=== PATIENT | male | born 1995 | race Two or more races ===

== ENCOUNTER 2018-11-25 00:55 | Emergency (ER) | payer MEDICAID ==
[~2018-11-25] VITALS: Ht 165.1 cm; Wt 93.0 kg
[2018-11-25] MEDS ORDERED: HYDROCODONE/ACETAMINOPHEN 5/325MG TABLET PO ONE (02:00)
[2018-11-25] MEDS ORDERED: LEVETIRACETAM 500MG PREMIX 100 ML IV ONE (03:45)
[2018-11-25 03:50] LABS: CHLORIDE 109 mEq/L (98-107)
[2018-11-25 03:52] LABS: BASOPHILS % 0.5 % (0.0-2.0); EOSINOPHILS % 0.4 % (0.0-5.0); HEMATOCRIT. 47.8 % (42.0-52.0); HEMOGLOBIN. 16.2 g/dL (14.0-18.0); INR 0.9; LYMPHOCYTES % 7.5 % (20.0-50.0); MEAN CORPUSCULAR HEMOGLOBIN 29.5 pg (28.0-32.0); MEAN PLATELET VOLUME 9.4 fl (7.4-10.4); MONOCYTES % 4.9 % (2.0-8.0); NEUTROPHILS % 86.7 % (40.0-76.0); PLATELET 225 x1000/uL (130-400); PROTHROMBIN TIME 9.4 sec (9.6-11.0); RED BLOOD CELL COUNT 5.49 mill/uL (4.7-6.1); RED CELL DISTRIBUTION WIDTH 12.9 % (11.6-14.6)
[2018-11-25 11:15] VITALS: BP 134/95
== END 2018-11-25 11:30 | disposition short-term general hospital (02) ==
LOC: ER 00:55 → EDBEDREQ 04:19 → EDBEDREQTM 04:19 → EDBEDREQSVC 04:21 → ENRESERV 04:55 → CANRESERV 04:55 → CANBEDREQ 07:03 → ER 11:30
DX: S02.2XXA Fracture of nasal bones, initial encounter for closed fracture (principal); S02.40DA Maxillary fracture, left side, initial encounter for closed fracture; I62.9 Nontraumatic intracranial hemorrhage, unspecified; J45.909 Unspecified asthma, uncomplicated; X58.XXXA Exposure to other specified factors, initial encounter; Y93.89 Activity, other specified; Y92.89 Other specified places as the place of occurrence of the external cause; Y99.8 Other external cause status
CPT/HCPCS: 12013; 36415; 70450; 70486; 72125; 80053; 85025; 85610; 96365; 99291; J1953; Z7610